=== PATIENT | female | born 1995 | race Caucasian/White ===

== ENCOUNTER → 2016-08-17 | Day surgery (SDC) | payer BC ==
[~2016-08-17] MED LIST: BIRTH CONTROL MED; ZOFRAN
--- NOTE | ~2016-08-17 | OR ---
Unit #: [id number] #: [id number] Patient: NANCI HERRING [id number] [address] [place], [place] [address] [id number] O MR#: [id number] NAME: NANCI HERRING. ROOM: Date of Procedure: 08/17/2016 Admission Date: 08/17/2016 Surgeon: Lamont Chaudhary M.D. : 1995 Attending Physician: Lamont Chaudhary M.D. Primary Care Physician: Lauren Dinh M.D. OPERATIVE REPORT JOB NOTE: CC: LAUREN DINH. PRIMARY CARE PHYSICIAN Lauren Dinh. PREOPERATIVE DIAGNOSES The patient has recently found to have thickening of the terminal ileum on a CAT scan done in emergency room for abdominal pain and diarrhea. Since then, she has felt better and the symptoms have resolved. The purpose of examination is to look for any evidence of Crohn disease. In addition, the patient has history of increasing constipation and fecal impaction. PROCEDURE PERFORMED Colonoscopy up to cecum and terminal ileum with excellent preparation and good visualization. POSTOPERATIVE DIAGNOSES Completely normal examination up to cecum and terminal ileum. The quality of the prep was excellent. No polyps, diverticula, or hemorrhoids were seen. Specifically, there were no evidence of Crohn disease. RECOMMENDATIONS The patient was discharged after reassurance. She will use daily MiraLAX and Senokot on an as needed basis and will be followed up in the office in 3 to 4 months' time. SEDATION USED MAC. DESCRIPTION OF PROCEDURE Following detailed explanation of the potential risks and complications of colonoscopy, namely perforation, bleeding, and complication related to sedation, the patient was brought to GI lab and laid in the left lateral decubitus position. A digital rectal examination was performed, which was normal. Lubricated tip of the Olympus video colonoscope was inserted through the anus and advanced under direct vision. The scope was advanced past rectosigmoid into descending colon. No diverticula were noted in this area. The scope tip was then navigated all the way up to cecum with visualization of the ileocecal valve and the appendiceal orifice. Preparation was excellent with good visualization and photodocumentation was obtained. Last several inches of the terminal ileum were also visualized after intubation of the ileocecal valve and appeared normal. Unit #: [id number] #: [id number] Patient: NNACI HERRING Successive segments of the colonic mucosa were examined upon withdrawal and appeared unremarkable. There being no polyps, mass lesions, AVMs, or diverticula. No mucosal abnormalities were noted. The patient did have minimal proctitis. The scope was then withdrawn and the patient returned to recovery area. She tolerated the procedure without any postprocedure complications. Dictated by... Hawa Wu/raissa TD: 08/17/2016 15:13 JOB #: [id number] OPERATIVE REPORT Page 1 of 1 X Lamont Chaudhary MD X PROCEDURE OPERATIVE NOTE
== END | disposition home or self-care (01) ==
LOC: COPS 06:17
DX: K59.00 Constipation, unspecified (principal); K62.89 Other specified diseases of anus and rectum; K21.9 Gastro-esophageal reflux disease without esophagitis; Z87.19 Personal history of other diseases of the digestive system; Z88.0 Allergy status to penicillin; Z98.890 Other specified postprocedural states
CPT/HCPCS: 84703; J2250